=== PATIENT | male | born 1975 | race Caucasian/White ===

== ENCOUNTER 2016-11-15 23:19 | Emergency (ER) | payer MEDICAID ==
[2016-11-16] VITALS: BP 123/87
== END 2016-11-16 | disposition home or self-care (01) ==
LOC: ED 23:19
DX: J30.9 Allergic rhinitis, unspecified (principal)

== ENCOUNTER 2018-08-06 13:07 | Emergency (ER) | payer MEDICAID ==
[2018-08-06 13:24] VITALS: Ht 147.3 cm
[2018-08-06 17:19] VITALS: BP 130/80
== END 2018-08-06 17:19 | disposition home or self-care (01) ==
LOC: ED 13:07
DX: M25.561 Pain in right knee (principal); F17.210 Nicotine dependence, cigarettes, uncomplicated
CPT/HCPCS: J1885; J7030